=== PATIENT | female | born 1960 | race Two or more races ===

== ENCOUNTER 2019-02-16 18:44 | Emergency (ER) | payer OTHER ==
[~2019-02-16] VITALS: Ht 154.9 cm; Wt 66.8 kg
[2019-02-16 19:18] VITALS: BP 142/76
== END 2019-02-16 19:19 | disposition home or self-care (01) | DRG 103 ==
LOC: ED 18:44
DX: R51 Headache (principal); V44.6XXA Car passenger injured in collision with heavy transport vehicle or bus in traffic accident, initial encounter